=== PATIENT | male | born 2000 | race Hispanic/Latino ===

== ENCOUNTER 2020-06-27 20:24 | Emergency (ER) | payer SELFPAY ==
[~2020-06-27] VITALS: Ht 170.2 cm; Wt 72.6 kg
[2020-06-27] MEDS ORDERED: AMOXICILLIN/POTASSIUM CLAV 875-125 TABLET PO ONE (21:00)
[2020-06-27] MEDS ORDERED: RABIES VACC, HUMAN DIPLOID/PF 2.5 UNIT ML IM SCH (21:15)
[2020-06-27] MEDS ORDERED: TETANUS/DIPHTHERIA TOXOID [ADULT] 0.5 ML VIAL IM ONE (21:20)
== END 2020-06-27 21:58 | disposition home or self-care (01) ==
LOC: EDH 20:24
DX: S71.152A Open bite, left thigh, initial encounter (principal); W54.0XXA Bitten by dog, initial encounter; Y93.89 Activity, other specified; Y92.89 Other specified places as the place of occurrence of the external cause; Y99.8 Other external cause status
CPT/HCPCS: 73552; 90471; 90472; 90675; 90714